=== PATIENT | male | born 1990 | race Caucasian/White ===

== ENCOUNTER 2021-04-17 16:45 | Outpatient (REF) | payer OTHER, SELFPAY ==
[2021-04-19 14:41] LABS: COVID-19 RT-PCR UVMMC Result Negative (Negative)
== END 2021-04-17 16:46 | disposition home or self-care (01) ==
LOC: NCHCN 16:45
PROVIDERS: PCP Nurse Practitioner Family; Visit Provider Nurse Practitioner Family
DX: Z20.822 Contact with and (suspected) exposure to COVID-19 (principal); J02.9 Acute pharyngitis, unspecified
CPT/HCPCS: U0003